=== PATIENT | male | born 2000 | race Hispanic/Latino ===

== ENCOUNTER 2018-04-24 01:04 | Emergency (ER) | payer SELFPAY ==
[2018-04-24] MEDS ORDERED: ONDANSETRON ODT 8 MG TAB SL ONE (01:16)
[2018-04-24] MEDS ORDERED: SODIUM CHLORIDE 0.9% 1000ML 1,000 ML IVS ONE (01:16)
[2018-04-24 01:21] VITALS: TEMP 97.6
--- NOTE | 2018-04-24 01:21 | ED.PDOC ---
History of Present Illness - General Chief Complaint: Abdominal Pain Stated Complaint: N/V and abdominal pain Time Seen by Provider: 04/24/18 01:15 Information Source: patient Exam Limitations: no limitations - History of Present Illness Initial Comments: patient comes in for one-day history of nausea, vomiting, and abdominal pain and cramping. Patient states it started earlier this morning and he denies any recent travel or change in activity. Patient had no questionable by mouth intake. Patient does have some chills but no fever and did have a bowel movement that was loose earlier in the course. Patient states that all pain started off epigastric but it localizes more to the lower quadrants right worse than left. He has no dysuria, hematuria, cough or cold symptoms. Patient is otherwise healthy although he did have asthma as a child he currently does not require an inhaler. He does not smoke, drink, or take illicit substances. He has not taken [id number] medications. Abdominal Pain Onset Location: RLQ Pain Radiation: no radiation Quality: moderate, cramping Timing/Duration: 24 hours Improving Factors: nothing Worsening Factors: nothing Associated Symptoms: nausea/vomiting Review of Systems - Review of Systems Constitutional: States: chills. Denies: diaphoresis, fever EENTM: States: no symptoms reported. Denies: eye pain, ear pain, throat pain Respiratory: States: no symptoms reported. Denies: cough, short of breath, wheezing Cardiology: States: no symptoms reported Gastrointestinal/Abdominal: States: abdominal pain, diarrhea, nausea, vomiting Genitourinary: States: no symptoms reported Musculoskeletal: States: no symptoms reported Skin: States: no symptoms reported Past Medical History (General) - Patient Medical History Hx Seizures: No Hx Stroke: No Hx Dementia: No Hx Asthma: Yes Hx of COPD: No Hx Cardiac Disorders: No Hx Congestive Heart Failure: No Hx Pacemaker: No Hx Hypertension: No Hx Thyroid Disease: No Hx Diabetes: No Hx Gastroesophageal Reflux: No Hx Renal Disease: No Hx Cancer: No Hx of HIV: No Hx Hepatitis C: No Hx MRSA: No Surgical History: other - Vaccination History Hx Tetanus, Diphtheria Vaccination: Yes Hx Influenza Vaccination: No Hx Pneumococcal Vaccination: No Immunizations Up to Date: Yes - Social History Hx Tobacco Use: No Hx Alcohol Use: No Hx Substance Use: No Hx Substance Use Treatment: No Hx Depression: No Feels Threatened In Home Enviroment: No Feels Threatened In a Relationship: No Hx Physical Abuse: No Hx Emotional Abuse: No Hx Suspected Abuse: No - Triage Comment ED Triage Comment: Pt states that he has had worsening abdominal pain that began at 7 pm last night. Pt also states that he has thrown up about four times since. Family Medical History - Family History Mother Family History: No Known Physical Exam - Physical Exam General Appearance: Alert, No apparent distress Eyes, Ears, Nose, Throat Exam: PERRL/EOMI, normal ENT inspection, TMs normal, pharynx normal Neck: non-tender, full range of motion, supple, normal inspection Respiratory: chest non-tender, lungs clear, normal breath sounds, no respiratory distress Cardiovascular/Chest: normal peripheral pulses, regular rate, rhythm, no edema, no gallop, no JVD, no murmur Peripheral Pulses: No deficit Gastrointestinal/Abdominal: soft, other - hypoactive bowel sounds, non-distended , TTP diffusely with RLQ greater than other quadrants, no guarding, no rebound, negative heel tap Back Exam: normal inspection Progress - Progress Progress: 04/24/18 02:13 04/24/18 01:16 Sodium Chloride 0.9% 1000ML [Ns 1000 ml] 1,000 ml IVS ONCE 04/24/18 01:19 URINALYSIS Stat Laboratory Results WBC 15.6 K/mm3 (4.8-10.8) H 04/24/18 01:16 RBC 5.35 M/mm3 (4.70-6.10) 04/24/18 01:16 Hgb 15.4 gm/dL (14.0-18.0) 04/24/18 01:16 Hct 44.8 % (42.0-52.0) 04/24/18 01:16 MCV 83.7 fl (80.0-94.0) 04/24/18 01:16 MCH 28.8 pg (27.0-31.0) 04/24/18 01:16 MCHC 34.4 g/dL (33.0-37.0) 04/24/18 01:16 RDW 13.5 % (11.5-14.5) 04/24/18 01:16 Plt Count 210 K/mm3 (130-400) 04/24/18 01:16 MPV 9.4 fl (7.40-10.4) 04/24/18 01:16 Absolute Neuts (auto) 13.10 K/uL (1.8-6.8) H 04/24/18 01:16 Absolute Lymphs (auto) 1.30 K/uL (1.0-3.4) 04/24/18 01:16 Absolute Monos (auto) 0.90 K/uL (0.2-0.8) H 04/24/18 01:16 Absolute Eos (auto) 0.10 K/uL (0.0-0.4) 04/24/18 01:16 Absolute Basos (auto) 0.10 K/uL (0.0-0.1) 04/24/18 01:16 Neutrophils % 84.2 % (42.0-78.0) H 04/24/18 01:16 Lymphocytes % 8.5 % (20.0-50.0) L 04/24/18 01:16 Monocytes % 5.9 % (2.0-9.0) 04/24/18 01:16 Eosinophils % 0.9 % (1.0-5.0) L 04/24/18 01:16 Basophils % 0.5 % (0.0-2.0) 04/24/18 01:16 Sodium 137 mmol/L (135-145) 04/24/18 01:16 Potassium 3.4 mmol/L (3.6-5.0) L 04/24/18 01:16 Chloride 105 mmol/L (101-111) 04/24/18 01:16 Carbon Dioxide 23 mmol/L (21-31) 04/24/18 01:16 Anion Gap 12.4 (12-18) 04/24/18 01:16 BUN 10 mg/dL (7-18) 04/24/18 01:16 Creatinine 0.78 mg/dL (0.6-1.3) 04/24/18 01:16 BUN/Creatinine Ratio 12.8 (10-20) 04/24/18 01:16 Random Glucose 113 mg/dL (70-105) H 04/24/18 01:16 Serum Osmolality 273.7 mOsm/L (275-295) L 04/24/18 01:16 Calcium 9.9 mg/dL (8.4-10.2) 04/24/18 01:16 Total Bilirubin 0.8 mg/dL (0.2-1.0) 04/24/18 01:16 AST 22 IU/L (10-42) 04/24/18 01:16 ALT 28 IU/L (10-60) 04/24/18 01:16 Alkaline Phosphatase 84 IU/L (180-700) L 04/24/18 01:16 Serum Total Protein 7.8 gm/dL (6.4-8.2) 04/24/18 01:16 Albumin 4.9 g/dl (3.2-5.5) 04/24/18 01:16 Globulin 2.9 gm/dL (2.3-3.5) 04/24/18 01:16 Albumin/Globulin Ratio 1.7 (1.1-1.9) 04/24/18 01:16 Amylase 44 U/L (28-100) 04/24/18 01:16 Lipase 21 U/L (22-51) L 04/24/18 01:16 Patient Name: EDNA LOGAN Gender: Male Date of : 2000 Referring Physician: LUZ ELENA DEXTER Organization: [facility] Accession Number: [id number] Requested Date: April 24, 2018 01:16 Report Status: Final Requested Procedure: 1 Procedure Description: CT ABDOMEN PELVIS WITHOUT IV CONTRAST Modality: CT Findings Reporting MD: Kurt Fuller Fellow MD: Not available Dictation Time: Sports Marketing Coordinator: Not available Shader And Toner Date: EXAM DESCRIPTION: CT ABDOMEN AND PELVIS WITHOUT CONTRAST CLINICAL HISTORY: RLQ abdominal pain COMPARISON: None Available. TECHNIQUE: CT of the abdomen and pelvis without IV contrast. Evaluation of the solid organs and vasculature is suboptimal due to lack of IV contrast. DLP: 726.40 mGy-cm FINDINGS: Lung Bases: The visualized lung bases are clear. Bones: No destructive bone lesions identified. Abdomen: Liver: The liver has normal size and density. Gallbladder: No calcified gallstones. Spleen, Pancreas, and Adrenal Glands: The spleen, pancreas, and adrenal glands are unremarkable. Kidneys: The kidneys have normal size and contour without evidence of hydronephrosis. No obstructing ureteral calculi. Vasculature: The aorta and IVC have normal caliber and position. Stomach: The stomach and duodenum have normal course. Other: No free intraperitoneal air. No free fluid or lymphadenopathy. Pelvis: Bladder: Urinary bladder is unremarkable. Bowel: No dilated loops of large or small bowel. Appendix: Dilated fluid-filled appendix with periappendiceal fat stranding. No periappendiceal abscess formation. Pelvis: Prostate is not enlarged. IMPRESSION: [facility] [employer] [employer] [address] [place] [address], [address] Floor [place], [place] T [phone] F [phone] [email or web address] - Report exported on SatApr 24, 2018 02:13:18 -2102 - Page 2 of 2 1. Findings compatible with acute appendicitis. This exam was performed according to our departmental dose-optimization program, which includes automated exposure control, adjustment of the mA and/or kV according to patient size and/or use of iterative reconstruction technique 04/24/18 02:21 called [facility] and accepted by Dr. Padma Isaac Departure - Departure Clinical Impression: Appendicitis Qualifiers: Appendicitis type: acute appendicitis Acute appendicitis type: unspecified acute appendicitis type Qualified Code(s): K35.80 - Unspecified acute appendicitis Disposition: Transfer to Hospital Condition: Fair Departure Forms: ED Discharge - Pt. Copy, Patient Portal Self Enrollment Instructions: DI for Abdominal Pain-Adult Referrals: Marilia Leyva NP [Primary Care Provider] - 1-2 Weeks
[2018-04-24 02:02] VITALS: BP 149/76; O2SAT 99
--- NOTE | 2018-04-24 02:12 | CT ---
EXAM DESCRIPTION: CT ABDOMEN AND PELVIS WITHOUT CONTRAST CLINICAL HISTORY: RLQ abdominal pain COMPARISON: None Available. TECHNIQUE: CT of the abdomen and pelvis without IV contrast. Evaluation of the solid organs and vasculature is suboptimal due to lack of IV contrast. DLP: 726.40 mGy-cm FINDINGS: Lung Bases: The visualized lung bases are clear. Bones: No destructive bone lesions identified. Abdomen: Liver: The liver has normal size and density. Gallbladder: No calcified gallstones. Spleen, Pancreas, and Adrenal Glands: The spleen, pancreas, and adrenal glands are unremarkable. Kidneys: The kidneys have normal size and contour without evidence of hydronephrosis. No obstructing ureteral calculi. Vasculature: The aorta and IVC have normal caliber and position. Stomach: The stomach and duodenum have normal course. Other: No free intraperitoneal air. No free fluid or lymphadenopathy. Pelvis: Bladder: Urinary bladder is unremarkable. Bowel: No dilated loops of large or small bowel. Appendix: Dilated fluid-filled appendix with periappendiceal fat stranding. No periappendiceal abscess formation. Pelvis: Prostate is not enlarged. IMPRESSION: 1. Findings compatible with acute appendicitis. This exam was performed according to our departmental dose-optimization program, which includes automated exposure control, adjustment of the mA and/or kV according to patient size and/or use of iterative reconstruction technique. Electronically signed by: Kurt Fuller 04/24/2018 2:10 AM CDT
== END 2018-04-24 02:40 | disposition short-term general hospital (02) ==
LOC: ER 01:04
DX: K35.80 Unspecified acute appendicitis (principal); J45.909 Unspecified asthma, uncomplicated
CPT/HCPCS: 36415; 74176; 80053; 82150; 83690; 85025; J7030

== ENCOUNTER 2020-03-04 21:45 | Emergency (ER) | payer BC ==
[2020-03-04 21:48] VITALS: TEMP 97.1; O2SAT 99
[2020-03-04] MEDS ORDERED: predniSONE 20 MG TAB PO ONE (22:10)
[2020-03-04] MEDS ORDERED: valACYclovir 500 MG TAB ONE (22:17)
--- NOTE | 2020-03-04 22:20 | ED.PDOC ---
History of Present Illness - General Chief Complaint: Asthma Stated Complaint: tightness in chest, fever Time Seen by Provider: 03/04/20 21:48 Source: patient Exam Limitations: no limitations - History of Present Illness Initial Comments: The patient is a 19-year-old male presented emergency room secondary to sore throat as well as some sweats and increased asthma exacerbation over the last 3 to 4 days. The patient was seen by his primary care doctor 3 days ago and was tested for strep and flu which were negative. He also had a coronavirus test sent off which is still pending. He is still having some shortness of breath. He is oxygenating well. He is not in respiratory distress. Blood pressures and temperature are within normal limits. Pulse ox is within normal limits. No increased work of breathing at rest. The patient is mildly diaphoretic and does report some body aches. Examination of the posterior oropharynx shows herpangina. No evidence of any abscess formation. No anterior oral aphthous lesions or blistering. He has not had any exposure that he knows of to HSV. He has never had any fever blisters before. Timing/Duration: other - 3 to 4 days Severity: moderate Improving Factors: nothing Worsening Factors: nothing Associated Symptoms: cough, diaphoresis, malaise, shortness of breath Allergies/Adverse Reactions: Allergies NO KNOWN ALLERGY Allergy (Verified 04/24/18 01:11) Home Medications: Ambulatory Orders Valacyclovir HCl [Valtrex] 1 gm PO BID #7 tab 03/04/20 predniSONE [Prednisone] 20 mg PO DAILY #3 tab 03/04/20 Review of Systems - Review of Systems Constitutional: States: diaphoresis, malaise EENTM: States: throat pain Respiratory: States: short of breath, wheezing Cardiology: States: no symptoms reported Gastrointestinal/Abdominal: States: no symptoms reported Genitourinary: States: no symptoms reported Musculoskeletal: States: no symptoms reported Skin: States: no symptoms reported Neurological: States: no symptoms reported Endocrine: States: no symptoms reported All other Systems: No Change from Baseline Past Medical History (General) - Patient Medical History Hx Seizures: No Hx Stroke: No Hx Dementia: No Hx Asthma: Yes Hx of COPD: No Hx Cardiac Disorders: No Hx Congestive Heart Failure: No Hx Pacemaker: No Hx Hypertension: No Hx Thyroid Disease: No Hx Diabetes: No Hx Gastroesophageal Reflux: No Hx Renal Disease: No Hx Cancer: No Hx of HIV: No Hx Hepatitis C: No Hx MRSA: No Surgical History: appendectomy, tonsillectomy, other - Vaccination History Hx Tetanus, Diphtheria Vaccination: Yes Hx Influenza Vaccination: Yes Hx Pneumococcal Vaccination: No Immunizations Up to Date: No - Social History Hx Tobacco Use: Yes Hx Chewing Tobacco Use: No Hx Alcohol Use: No Hx Substance Use: No Hx Substance Use Treatment: No Hx Depression: No Feels Threatened In Home Enviroment: No Feels Threatened In a Relationship: No Hx Physical Abuse: No Hx Emotional Abuse: No Hx Suspected Abuse: No - Activities of Daily Living Hospice Agency (if applicable):: None - Female History Patient is a Female of Child Bearing Age (10 -59 yrs old): No Family Medical History - Family History Mother Family History: No Known Physical Exam - Physical Exam General Appearance: Agitated, Alert, Comfortable, No apparent distress Eye Exam: bilateral normal Ears, Nose, Throat: hearing grossly normal, pharyngeal erythema - With posterior aphthous ulcerations Neck: other - Mild shotty cervical lymphadenopathy anteriorly bilaterally Respiratory: lungs clear, normal breath sounds, no respiratory distress, no accessory muscle use Cardiovascular/Chest: normal peripheral pulses, regular rate, rhythm, no edema Peripheral Pulses: radial,right: 2+, radial,left: 2+ Gastrointestinal/Abdominal: non tender, soft Rectal Exam: deferred Extremity: normal range of motion, non-tender, normal inspection, no pedal edema, normal capillary refill Neurologic: industrial roofer II-XII nml as tested, alert, normal mood/affect, oriented x 3 Skin Exam: diaphoresis Comments: Vital Signs - 24 hr 03/04/20 21:47 Temperature 97.1 F L Pulse Rate [ 59 L monitor] Respiratory 20 Rate Blood Pressure 132/92 [Left Arm] O2 Sat by Pulse 99 Oximetry Progress - Progress Progress: 03/04/20 22:22 The patient is a 19-year-old male presented emergency room secondary to 4 days of sore throat and increased shortness of breath along with some diaphoresis. He does have asthma but is not been using his inhaler much. He was tested for strep and flu with his primary care doctor and tested negative. He is still waiting on a coronavirus result. Vital signs are stable and he is oxygenating well with no respiratory distress. Physical exam reveals herpangina which is more consistent with coxsackievirus, echovirus or enterovirus. HSV can also be associated with it on occasion. For this reason he will be dosed with Valtrex. He is also receiving mild dose of prednisone orally to help with the asthma component. We will avoid inhaled corticosteroids for now. He needs to get himself well-hydrated. Tylenol and Motrin can be used for discomfort and any low-grade fever. He does need to follow-up with his primary care doctor tomorrow to get the results of his coronavirus test. Even if it is negative, he does appear to have a viral syndrome that is contagious at this point and should avoid passing into other people. Chest x-ray was clear here today. Follow-up with primary care doctor tomorrow. I would also encourage him to use his inhaler 4 puffs every 2 hours during the day for the next 3 or 4 days. This should help get his asthma back under control at least in the short-term. We did go ahead and repeat the strep test which was positive here tonight. He received a dose of Bicillin LA. It is uncertain whether this is colonization or actual infection. [email or web address] [email or web address] [phone] 03/04/20 22:34 Departure - Departure Clinical Impression: Streptococcal pharyngitis Asthma exacerbation Qualifiers: Asthma severity: moderate Asthma persistence: unspecified Qualified Code(s): J45.901 - Unspecified asthma with (acute) exacerbation Disposition: Discharge to Home or Self Care Condition: Fair Departure Forms: ED Discharge - Pt. Copy, Patient Portal Self Enrollment Instructions: DI for Asthma -- Adult Diet: regular diet Activity: increase activity as tolerated Referrals: Marilia Leyva NP [Primary Care Provider] - 1-2 Weeks Prescriptions: predniSONE [Prednisone] 20 mg PO DAILY #3 tab Valacyclovir HCl [Valtrex] 1 gm PO BID #7 tab Home Medications: Ambulatory Orders Valacyclovir HCl [Valtrex] 1 gm PO BID #7 tab 03/04/20 predniSONE [Prednisone] 20 mg PO DAILY #3 tab 03/04/20 Additional Instructions: The patient is a 19-year-old male presented emergency room secondary to 4 days of sore throat and increased shortness of breath along with some diaphoresis. He does have asthma but is not been using his inhaler much. He was tested for strep and flu with his primary care doctor and tested negative. He is still waiting on a coronavirus result. Vital signs are stable and he is oxygenating well with no respiratory distress. Physical exam reveals herpangina which is more consistent with coxsackievirus, echovirus or enterovirus. HSV and strep can also present a similar picture at times. for this reason he will be dosed with Valtrex. We did retest him for strep throat which came back positive. I am uncertain if this is the source of the infection or simply colonization. He did receive a dose of Bicillin L-A. He is also receiving mild dose of prednisone orally to help with the asthma component. We will avoid inhaled corticosteroids for now. He needs to get himself well-hydrated. Tylenol and Motrin can be used for discomfort and any low-grade fever. He does need to follow-up with his primary care doctor tomorrow to get the results of his coronavirus test. Even if it is negative, he does appear to be contagious at this point and should avoid passing into other people. Chest x-ray was clear here today. Follow-up with primary care doctor tomorrow. I would also encourage him to use his inhaler 4 puffs every 2 hours during the day for the next 3 or 4 days. This should help get his asthma back under control at least in the short-term.
--- NOTE | 2020-03-04 22:29 | RAD ---
EXAM: XR Chest, 1 View CLINICAL HISTORY: The patient is 19 years old and is Male; ASTHMA, FEVER, SORE THROAT TECHNIQUE: Frontal view of the chest. COMPARISON: No relevant prior studies available. FINDINGS: LUNGS: Unremarkable. No consolidation. PLEURAL SPACE: Unremarkable. No pneumothorax. HEART: Unremarkable. No cardiomegaly. MEDIASTINUM: Unremarkable. BONES/JOINTS: Unremarkable. IMPRESSION: No acute cardiopulmonary process. Electronically signed by: Toya Payne MD 03/04/2020 10:27 PM CDT
[2020-03-04] MEDS ORDERED: PENICILLIN BENZATHINE 1.2 MU 1.2 MU/2 ML SYG IM ONE (22:34)
[2020-03-04 22:36] VITALS: BP 127/99
[2020-03-05] MEDS ORDERED: valACYclovir 500 MG TAB PO ONE (22:10)
== END 2020-03-04 22:44 | disposition home or self-care (01) ==
LOC: ER 21:45
DX: J02.0 Streptococcal pharyngitis (principal); J45.901 Unspecified asthma with (acute) exacerbation; F17.200 Nicotine dependence, unspecified, uncomplicated
CPT/HCPCS: 71045; 87880; J0561; J7512

== ENCOUNTER → 2020-07-23 | Outpatient (CLI) | payer OTHER ==
--- NOTE | 2020-07-24 08:49 | RAD ---
EXAM DESCRIPTION: Hand,Right 3 Views (accession [id number]), Thumb,Right (accession [id number]) CLINICAL HISTORY: 19 years Male, THUMB INJURY RIGHT COMPARISON: None. Findings: Six view(s)/radiograph(s) No acute fracture or dislocation. No focal soft tissue swelling. Joint spaces are maintained. IMPRESSION: No acute osseous abnormality in the right hand/thumb. Electronically signed by: Jose Wallace MD 07/24/2020 8:47 AM CDT
--- NOTE | 2020-07-24 08:49 | RAD ---
EXAM DESCRIPTION: Hand,Right 3 Views (accession [id number]), Thumb,Right (accession [id number]) CLINICAL HISTORY: 19 years Male, THUMB INJURY RIGHT COMPARISON: None. Findings: Six view(s)/radiograph(s) No acute fracture or dislocation. No focal soft tissue swelling. Joint spaces are maintained. IMPRESSION: No acute osseous abnormality in the right hand/thumb. Electronically signed by: Jose Wallace MD 07/24/2020 8:47 AM CDT
== END ==
LOC: RAD 14:19
PROVIDERS: ATTEND Nurse Practitioner Family
DX: S69.91XA Unspecified injury of right wrist, hand and finger(s), initial encounter (principal)